=== PATIENT | male | born 1985 | race American Indian/Alaskan Native ===

== ENCOUNTER 2017-03-27 17:39 | Emergency (ER) | payer SELFPAY ==
[2017-03-27 17:46] VITALS: BMI 27.3
[2017-03-27 17:51] VITALS: RESP 18; TEMP 98.5
[2017-03-27] MEDS ORDERED: Albuterol-Ipratrop 3 mg / 0.5 (3 ml) UD IH STA (18:41)
[2017-03-27] MEDS ORDERED: guaiFENesin 200 mg/10 ml Syrup UD PO ONE (18:41)
--- NOTE | 2017-03-27 19:46 | ED PDOC ---
Arrival/HPI - General Historian: Patient - History of Present Illness Time/Duration: Other (3 weeks) Symptom Course: Improving Quality: Other Context: Home, Work - General Chief Complaint: Cough, Cold, Congestion Time Seen by Provider: 03/27/17 18:11 - History of Present Illness Narrative History of Present Illness (Text): 03/27/17 19:43 A 31 year old male presents to the emergency department complaining of a cough for the past 3 weeks. Patient reports initially his cough was productive with associated fevers and chills, which have now fully resolved. Patient denies any nausea, vomiting, abdominal pain, chest pain, shortness of breath, headache, dizziness or any other complaints. 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 He denies any recent travel. Patient stopped smoking approximately 1 month ago. PMD: None (Brandon SMALL,Pamela Lama) Past Medical History - Provider Review Nursing Documentation Reviewed: Yes - Infectious Disease Hx of Infectious Diseases: None - Psychiatric Hx Substance Use: No - Anesthesia Hx Anesthesia: Yes Hx Anesthesia Reactions: Yes Hx Malignant Hyperthermia: Yes Family/Social History - Physician Review Nursing Documentation Reviewed: Yes Family/Social History: No Known Family HX Smoking Status: Former Smoker Hx Alcohol Use: No Hx Substance Use: No Allergies/Home Meds Allergies/Adverse Reactions: Allergies No Known Allergies Allergy (Verified 03/24/16 11:26) Review of Systems - Physician Review All systems were reviewed & negative as marked: Yes - Review of Systems Constitutional: absent: Fevers, Night Sweats Respiratory: Cough. absent: SOB, Sputum Cardiovascular: absent: Chest Pain Gastrointestinal: absent: Nausea, Vomiting Neurological: absent: Headache, Dizziness Physical Exam Vital Signs Reviewed: Yes Temperature: Afebrile Blood Pressure: Normal Pulse: Regular Respiratory Rate: Normal Appearance: Positive for: Well-Appearing, Non-Toxic, Comfortable Pain Distress: None Mental Status: Positive for: Alert and Oriented X 3 - Systems Exam Head: Present: Atraumatic, Normocephalic Pupils: Present: PERRL Extroacular Muscles: Present: EOMI Conjunctiva: Present: Normal Mouth: Present: Moist Mucous Membranes Pharnyx: No: ERYTHEMA, EXUDATE, TONSILS ENLARGED Neck: Present: Normal Range of Motion Respiratory/Chest: Present: Clear to Auscultation, Good Air Exchange. No: Respiratory Distress, Accessory Muscle Use Cardiovascular: Present: Regular Rate and Rhythm, Normal S1, S2. No: Murmurs Abdomen: Present: Normal Bowel Sounds. No: Tenderness, Distention, Peritoneal Signs Back: Present: Normal Inspection Upper Extremity: Present: Normal Inspection. No: Cyanosis, Edema Lower Extremity: Present: Normal Inspection. No: Edema Neurological: Present: GCS=15, CN II-XII Intact, Speech Normal Skin: Present: Warm, Dry, Normal Color. No: Rashes Psychiatric: Present: Alert, Oriented x 3, Normal Insight, Normal Concentration Vital Signs Temp Pulse Resp BP Pulse Ox 03/27/17 20:20 62 18 112/75 100 03/27/17 17:50 98.5 F 79 18 141/87 97 Medical Decision Making ED Course and Treatment: 03/27/17 19:43 Impression: A 31 year old male with non-productive cough. Plan: -- Chest xray -- Duoneb and Robitussin -- Reassess and disposition Progress Notes: CXR : NAD, as read by PA On reevaluation, patient is resting comfortably in bed in no acute distress, reports no shortness of breath or chest pain at this time. On exam, lungs are clear to auscultation, cardiac regular rate and rhythm. Chest x-ray results discussed the patient in great detail. Patient notified of likely diagnosis of bronchitis. Advised to follow up with the clinic in 1-2 days without fail. Advised to take medication as prescribed. Return to the emergency room at any time for any new or worsening symptoms. Patient states he fully agrees with and understands discharge instructions. States that he agrees with the plan and disposition. Verbalized and repeated discharge instructions and plan. I have given the patient opportunity to ask any additional questions. (Brandon SMALL,Pamela Lama) - RAD Interpretation Radiology Orders: 03/27/17 18:41 CHEST TWO VIEWS (PA/LAT) [RAD] Stat - Medication Orders Current Medication Orders: Discontinued Medications Albuterol/Ipratropium (Duoneb 3 Mg/0.5 Mg (3 Ml) Ud) 3 ml IH STAT STA Stop: 03/27/17 18:42 Last Admin: 03/27/17 18:51 Dose: 3 ml Guaifenesin (Robitussin) 400 mg PO ONCE ONE Stop: 03/27/17 18:42 Last Admin: 03/27/17 18:51 Dose: 400 mg - PA / REFRESH TECHNICIAN / Resident Statement MD/DO has reviewed & agrees with the documentation as recorded. - Scribe Statement The provider has reviewed the documentation as recorded by the Scribe - Scribe Statement Kelly Gayle Provider Scribe Attestation: All medical record entries made by the Scribe were at my direction and personally dictated by me. I have reviewed the chart and agree that the record accurately reflects my personal performance of the history, physical exam, medical decision making, and the department course for this patient. I have also personally directed, reviewed, and agree with the discharge instructions and disposition. (Brandon SMALL,Pamela Lama) Disposition/Present on Arrival - Present on Arrival Any Indicators Present on Arrival: No History of DVT/PE: No History of Uncontrolled Diabetes: No Urinary Catheter: No History of Decub. Ulcer: No History Surgical Site Infection Following: None - Disposition Have Diagnosis and Disposition been Completed?: Yes Disposition Time: 19:00 Patient Plan: Discharge - Disposition Diagnosis: Acute bronchitis Disposition: HOME/ ROUTINE Condition: IMPROVED Discharge Instructions (ExitCare): Acute Bronchitis (ED) Print Language: MONGOLIAN Additional Instructions: Thank you for letting us take care of you today. You were treated for acute bronchitis. The emergency medical care you received today was directed at your acute symptoms. If you were prescribed any medication, please fill it and take as directed. It may take several days for your symptoms to resolve. Return to the Emergency Department if your symptoms worsen, do not improve, or if you have any other problems. Please contact your doctor in 2 days for re-evaluation and follow up / or call one of the physicians/clinics you have been referred to that are listed on the Patient Visit Information form that is included in your discharge packet. Bring any paperwork you were given at discharge with you along with any medications you are taking to your follow up visit. Our treatment cannot replace ongoing medical care by a primary care provider (PCP) outside of the emergency department. Thank you for allowing the [facility] team to be part of your care today. If you had an X-Ray : A Radiologist will review the ED reading if any change in treatment is needed we will contact you. Prescriptions: Albuterol HFA [Ventolin HFA 90 mcg/actuation (8 g)] 2 puff IH [id number] #1 puff Albuterol 0.083% [Albuterol Sulfate 3 Ml] 3 ml IH Q4 #100 neb Guaifenesin 400 mg PO QID #20 tablet Nebulizer [Aeroneb Go Nebulizer] 1 each MC DAILY #1 each Referrals: PCP,NO [Primary Care Provider] - Follow up with primary [facility] at [facility] [Outside] - Follow up with primary Forms: [employer] (Spanish), WORK NOTE
[2017-03-27 20:21] VITALS: BP 112/75; PULSE 62; O2SAT 100
--- NOTE | 2017-03-28 07:58 | RAD ---
HISTORY: cough COMPARISON: No prior. TECHNIQUE: Chest PA and lateral FINDINGS: LUNGS: No active pulmonary disease. PLEURA: No significant pleural effusion identified. No pneumothorax apparent. CARDIOVASCULAR: Normal. OSSEOUS STRUCTURES: No significant abnormalities. VISUALIZED UPPER ABDOMEN: Normal. OTHER FINDINGS: None. IMPRESSION: No active disease.
== END 2017-03-27 20:48 | disposition home or self-care (01) ==
LOC: ED 17:39
DX: J20.9 Acute bronchitis, unspecified (principal)

== ENCOUNTER 2018-06-11 11:05 | Emergency (ER) | payer OTHER ==
[2018-06-11 11:22] VITALS: BMI 29.7
[2018-06-11 11:28] VITALS: RESP 18
--- NOTE | 2018-06-11 11:58 | ED PDOC ---
Arrival/HPI - General Chief Complaint: Flu-like Symptoms Time Seen by Provider: 06/11/18 11:27 Historian: Patient - History of Present Illness Narrative History of Present Illness (Text): 06/11/18 11:56 A 32 year old male, whose past medical history includes bronchitis, presents to the emergency department with a complaint of dry cough, body aches, subjective fever, and generalized weakness since last night. 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 The patient denies chills, headache, dizziness, syncope, chest pain, shortness of breath, dyspnea on exertion, abdominal pain, nausea, vomiting, diarrhea, urinary/bowel changes, or any other complaint. Past Medical History - Provider Review Nursing Documentation Reviewed: Yes - Infectious Disease Hx of Infectious Diseases: None - Pulmonary Hx Bronchitis: Yes - Psychiatric Hx Substance Use: No - Anesthesia Hx Anesthesia: Yes Family/Social History - Physician Review Nursing Documentation Reviewed: Yes Family/Social History: No Known Family HX Smoking Status: Former Smoker Hx Alcohol Use: No Hx Substance Use: No Allergies/Home Meds Allergies/Adverse Reactions: Allergies No Known Allergies Allergy (Verified 03/24/16 11:26) Home Medications: Home Meds Medication Instructions Recorded Confirmed RX: No Known Home Med 06/11/18 06/11/18 Review of Systems - Physician Review All systems were reviewed & negative as marked: Yes - Review of Systems Constitutional: Fevers Respiratory: Cough. absent: SOB Cardiovascular: absent: Chest Pain, RENEE Gastrointestinal: absent: Abdominal Pain, Stool Changes, Diarrhea, Nausea, Vomiting Genitourinary Male: absent: Urinary Output Changes Musculoskeletal: Myalgias Neurological: Other (generalized weakness.). absent: Headache, Dizziness Physical Exam Vital Signs Reviewed: Yes Vital Signs Temp Pulse Resp BP Pulse Ox 06/11/18 11:27 102.8 F H 105 H 18 106/58 L 97 Temperature: Febrile Blood Pressure: Hypotensive Pulse: Tachycardic Respiratory Rate: Normal Appearance: Positive for: Well-Appearing, Non-Toxic, Comfortable Pain Distress: None Mental Status: Positive for: Alert and Oriented X 3 - Systems Exam Head: Present: Atraumatic, Normocephalic Pupils: Present: PERRL Extroacular Muscles: Present: EOMI Conjunctiva: Present: Normal Mouth: Present: Moist Mucous Membranes Neck: Present: Normal Range of Motion Respiratory/Chest: Present: Clear to Auscultation, Good Air Exchange. No: Respiratory Distress, Accessory Muscle Use Cardiovascular: Present: Regular Rate and Rhythm, Normal S1, S2. No: Murmurs Abdomen: No: Tenderness, Distention, Peritoneal Signs Back: Present: Normal Inspection Upper Extremity: Present: Normal Inspection. No: Cyanosis, Edema Lower Extremity: Present: Normal Inspection. No: Edema Neurological: Present: GCS=15, CN II-XII Intact, Speech Normal Skin: Present: Warm, Dry, Normal Color. No: Rashes Psychiatric: Present: Alert, Oriented x 3, Normal Insight, Normal Concentration Medical Decision Making ED Course and Treatment: 06/11/18 11:59 Impression: A 32 year old male presents to the emergency department with a complaint of cough, fever, myalgias, and generalized weakness since last night. Plan: -- Tylenol -- Rapid Flu -- Reassess and disposition Progress Notes: 06/11/18 13:32 Negative flu and Negative Strep. On re-evaluation, patient feels better and is in no acute distress. I have discussed the results and plan with the patient, who expresses understanding. Patient in agreement with plan to be discharged home. Patient is stable for discharge. Patient was instructed to follow up with physician or return if symptoms worsen or new concerning symptoms arise. - Medication Orders Current Medication Orders: Discontinued Medications Acetaminophen (Tylenol 325mg Tab) 975 mg PO STAT STA Stop: 06/11/18 11:48 - Scribe Statement The provider has reviewed the documentation as recorded by the Teganibe Precious Pierre Provider Scribe Attestation: All medical record entries made by the Scribe were at my direction and personally dictated by me. I have reviewed the chart and agree that the record accurately reflects my personal performance of the history, physical exam, medical decision making, and the department course for this patient. I have also personally directed, reviewed, and agree with the discharge instructions and disposition. Disposition/Present on Arrival - Present on Arrival Any Indicators Present on Arrival: No History of DVT/PE: No History of Uncontrolled Diabetes: No Urinary Catheter: No History of Decub. Ulcer: No History Surgical Site Infection Following: None - Disposition Have Diagnosis and Disposition been Completed?: Yes Diagnosis: Viral syndrome Disposition: HOME/ ROUTINE Disposition Time: 13:28 Patient Plan: Discharge Condition: STABLE Discharge Instructions (ExitCare): Viral Syndrome (DC) Additional Instructions: MINNA MAYES, thank you for letting us take care of you today. Your provider was Kelsey Malagon MD and you were treated for WEAKNESS. The emergency medical care you received today was directed at your acute symptoms. If you were prescribed any medication, please fill it and take as directed. It may take several days for your symptoms to resolve. Return to the Emergency Department if your symptoms worsen, do not improve, or if you have any other problems. Please contact your doctor or call one of the physicians/clinics you have been referred to that are listed on the Patient Visit Information form that is included in your discharge packet. Bring any paperwork you were given at discharge with you along with any medications you are taking to your follow up visit. Our treatment cannot replace ongoing medical care by a primary care provider outside of the emergency department. Thank you for allowing the [facility] team to be part of your care today. If you had an X-Ray or CT scan: A Radiologist will review the ED reading if any change in treatment is needed we will contact you. If you had a blood, urine, or wound culture: It will take several days for the results, if any change in treatment is needed we will contact you. If you had an STI test: It will take 48 hours for the results. Please call after 1 week if you have not heard back. Referrals: [facility] [Outside] - Follow up with primary [facility] at [facility] [place] [Outside] - Follow up with primary Myla Mckeon MD [Medical Doctor] - Follow up with primary Forms: [employer] (Bulgarian), WORK NOTE
[2018-06-11 12:53] VITALS: BP 112/69; O2SAT 96
[2018-06-11 13:33] VITALS: PULSE 91; TEMP 99.7
== END 2018-06-11 13:43 | disposition home or self-care (01) ==
LOC: ED 11:05
DX: B34.9 Viral infection, unspecified (principal); Z87.891 Personal history of nicotine dependence

== ENCOUNTER 2018-11-07 08:47 | Emergency (ER) | payer SELFPAY ==
[2018-11-07 08:57] VITALS: BMI 30.3
--- NOTE | 2018-11-07 09:42 | ED PDOC ---
Arrival/HPI - General Historian: Patient - History of Present Illness Narrative History of Present Illness (Text): 11/07/18 09:25 CC: Left Eye Pain HPI: Patient is a 33 yo male w/ no significant PMH evaluated for left eye pain starting 2 days ago. Patient states he woke up and he was having pain, with sensitivity to light, and discharge of tears. Patient denies any trauma to the location. Patient states he wears glasses but no contacts. Patient states he feels like if there is something stuck in his eye. Denies prior episodes. Denies fevers, chills, chest pain, sob, n/v, constipation or diarrhea, and dysuria. Time/Duration: < week Symptom Onset: Sudden Symptom Course: Unchanged Quality: Aching Activities at Onset: Rest Context: Sitting <Yaya Becerril - Last Filed: 11/07/18 09:42> <Washington Stevens DO - Last Filed: 11/07/18 18:21> - General Chief Complaint: Eye Problem Time Seen by Provider: 11/07/18 08:58 Past Medical History - Provider Review Nursing Documentation Reviewed: Yes - Infectious Disease Hx of Infectious Diseases: None - Cardiac Hx Cardiac Disorders: No - Pulmonary Hx Respiratory Disorders: Yes Hx Bronchitis: Yes - Neurological Hx Neurological Disorder: No - HEENT Hx HEENT Disorder: No - Renal Hx Renal Disorder: No - Endocrine/Metabolic Hx Endocrine Disorders: No - Hematological/Oncological Hx Blood Disorders: No - Integumentary Hx Dermatological Disorder: No - Musculoskeletal/Rheumatological Hx Musculoskeletal Disorders: No - Gastrointestinal Hx Gastrointestinal Disorders: No - Genitourinary/Gynecological Hx Genitourinary Disorders: No - Psychiatric Hx Psychophysiologic Disorder: No Hx Substance Use: No - Anesthesia Hx Anesthesia: No Hx Anesthesia Reactions: No Hx Malignant Hyperthermia: No <Yaya Becerril - Last Filed: 11/07/18 09:42> Family/Social History Family/Social History: No Known Family HX Smoking Status: Former Smoker Hx Alcohol Use: Yes Frequency of alcohol use: Socially Hx Substance Use: No <Yaya Becerril - Last Filed: 11/07/18 09:42> Allergies/Home Meds <Yaya Becerril - Last Filed: 11/07/18 09:42> <Washington Stevens DO - Last Filed: 11/07/18 18:21> Allergies/Adverse Reactions: Allergies No Known Allergies Allergy (Verified 11/07/18 09:09) Review of Systems - Physician Review All systems were reviewed & negative as marked: Yes - Review of Systems Constitutional: Normal. absent: Fatigue, Weight Change Eyes: Eye Pain. absent: Vision Changes, Photophobia ENT: Normal. absent: Hearing Changes, Tinnitus, TMJ Pain, Voice Changes, Sore Throat Respiratory: Normal. absent: SOB Cardiovascular: Normal. absent: Chest Pain, Palpitations, Edema Gastrointestinal: Normal. absent: Abdominal Pain, Stool Changes, Constipation Genitourinary Male: Normal. absent: Dysuria, Frequency, Hematuria Musculoskeletal: Normal. absent: Arthralgias, Back Pain, Neck Pain Skin: Normal. absent: Rash Neurological: Normal. absent: Headache, Dizziness, Focal Weakness, Speech Changes Endocrine: Normal. absent: Diaphoresis Psychiatric: Normal. absent: Anxiety, Depression <JoneYaya - Last Filed: 11/07/18 09:42> Physical Exam Vital Signs Reviewed: Yes Vital Signs Temp Pulse Resp BP Pulse Ox 11/07/18 09:00 97.6 F 61 16 148/83 99 Temperature: Afebrile Blood Pressure: Normal Pulse: Regular Respiratory Rate: Normal Appearance: Positive for: Well-Appearing, Non-Toxic, Comfortable Pain Distress: Mild Mental Status: Positive for: Alert and Oriented X 3 - Systems Exam Head: Present: Atraumatic, Normocephalic. No: Tenderness, Contusion Pupils: Present: PERRL. No: Sluggish, Non-Reactive, Pinpoint Extroacular Muscles: Present: EOMI. No: Gaze Palsy, Entrapment Conjunctiva: Present: Normal. No: Injected, Icteric Mouth: Present: Moist Mucous Membranes Neck: Present: Normal Range of Motion. No: Meningeal Signs, JVD Respiratory/Chest: Present: Clear to Auscultation, Good Air Exchange. No: Respiratory Distress, Accessory Muscle Use, Wheezes Cardiovascular: Present: Regular Rate and Rhythm, Normal S1, S2. No: Murmurs, Irregular Rhythm Abdomen: Present: Normal Bowel Sounds. No: Tenderness, Distention, Peritoneal Signs Upper Extremity: Present: Normal Inspection. No: Cyanosis, Edema Lower Extremity: Present: Normal Inspection. No: Edema Neurological: Present: GCS=15, CN II-XII Intact, Speech Normal Skin: Present: Warm, Dry, Normal Color. No: Rashes Psychiatric: Present: Alert, Oriented x 3, Normal Insight, Normal Concentration <Yaya Becerril - Last Filed: 11/07/18 09:42> Vital Signs Temp Pulse Resp BP Pulse Ox 11/07/18 10:02 98.2 F 78 18 138/78 98 11/07/18 09:58 98.2 F 78 20 138/78 98 11/07/18 09:00 97.6 F 61 16 148/83 99 <Washington Stevens DO - Last Filed: 11/07/18 18:21> Medical Decision Making ED Course and Treatment: 11/07/18 09:47 Impression 33 yo male w/ no PMH evaluated for sudden onset of left eye pain Plan Fluorescein Exam Prior Visits All prior visits and lab work reviewed for this admission. Progress Notes Bedside fluorescein exam was performed No signs of corneal abrasion were detected during eye stain Discharged with eye antibiotics drop F/U with ophthalmology recommended. 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 Re-evaluation Time: 09:50 Reassessment Condition: Unchanged <Yaya Becerril - Last Filed: 11/07/18 09:42> ED Course and Treatment: 11/07/18 13:35 Patient Seen with Resident: In agreement with resident note which contains more details about the patient. Patient seen and evaluated with resident. Came up with plan and treatment together. <Washington Stevens DO - Last Filed: 11/07/18 18:21> - PA / AIRSET MOLDER / Resident Statement CHRISTINE has reviewed & agrees with the documentation as recorded. CHRISTINE has examined the patient and agrees with the treatment plan. <Washington Stevens DO - Last Filed: 11/07/18 18:21> Disposition/Present on Arrival - Present on Arrival Any Indicators Present on Arrival: No History of DVT/PE: No History of Uncontrolled Diabetes: No Urinary Catheter: No History of Decub. Ulcer: No History Surgical Site Infection Following: None - Disposition Have Diagnosis and Disposition been Completed?: Yes Disposition Time: 09:51 Patient Plan: Discharge <Yaya Becerril - Last Filed: 11/07/18 09:42> - Disposition Disposition Time: 09:30 <Washington Stevens DO - Last Filed: 11/07/18 18:21> - Disposition Diagnosis: Eye irritation, Eye pain Disposition: HOME/ ROUTINE Condition: FAIR Discharge Instructions (ExitCare): How to Use Eye Drops Additional Instructions: MINNA MAYES, thank you for letting us take care of you today. The emergency medical care you received today was directed at your acute symptoms. If you were prescribed any medication, please fill it and take as directed. It may take several days for your symptoms to resolve. Return to the Emergency Department if your symptoms worsen, do not improve, or if you have any other problems. Please contact your doctor or call one of the physicians/clinics you have been referred to that are listed on the Patient Visit Information form that is included in your discharge packet. Bring any paperwork you were given at discharge with you along with any medications you are taking to your follow up visit. Our treatment cannot replace ongoing medical care by a primary care provider outside of the emergency department. Thank you for allowing the [facility] team to be part of your care today. Follow up with the eye doctor in 1-2 days for re-evaluation and further management. Prescriptions: Polymyxin/Trimethoprim Sulfate [Polytrim Ophth Soln] 2 drop OS Q6 #1 bottle Referrals: Quinten Powell MD [Staff Provider] - Follow up with primary Forms: [employer] (Sinhala), WORK NOTE
[2018-11-07 09:59] VITALS: BP 138/78; PULSE 78; TEMP 98.2; O2SAT 98
[2018-11-07 10:03] VITALS: RESP 18
== END 2018-11-07 10:01 | disposition home or self-care (01) ==
LOC: ED 08:47
DX: H57.12 Ocular pain, left eye (principal); H57.89 Other specified disorders of eye and adnexa